=== PATIENT | female | born 1945 | race Caucasian/White ===

== ENCOUNTER → 2016-08-03 | Outpatient (CLI) | payer MEDICARE, BC ==
--- NOTE | 2016-08-03 17:13 | BD ---
EXAMINATION TYPE: MG DEXA axial skeleton. DATE OF EXAM: 08/03/2016 COMPARISON: 2014 CLINICAL HISTORY: osteopenia Height: 5'6 Weight: 133 FRAX RISK QUESTIONS: Alcohol (3 or more units per day): no Family History (Parent hip fracture): no Glucocorticoids (More than 3mos): no (Ex: prednisone, prednisolone, methylprednisolone, dexamethasone, and hydrocortisone). History of Fracture in Adulthood: yes Secondary Osteoporosis: 1. Type 1 Diabetes: no 2. Hyperthyroidism: no 3. Menopause before 45: no 4. Malnutrition: no 5. Chronic liver disease: no Rheumatoid Arthritis: no Current Tobacco Use: no RISK FACTORS HISTORY OF: Other Fractures since Age 52: When: age 55 Postmenopausal woman: MEDICATIONS: Additional Medications: Additional History: osteopenia EXAM MEASUREMENTS: Bone mineral densitometry was performed using the [employer] System. Bone mineral density as measured about the Lumbar spine is: ----- L1-L4(G/cm2): 1.012 T Score Values are as follows: ----- L2: -0.7 ----- L3: -1.4 ----- L4: -1.8 ----- L1-L4: -1.4 Bone mineral density has: Decreased -4.4% since study of: 07/10/2014 Bone mineral density about the R hip (g/cm2): 0.629 Bone mineral density about the L hip (g/cm2): 0.616 T Score values are as follows: -----R Neck: -2.9 -----L Neck: -3.0 -----R Total: -3.0 -----L Total: -3.1 Bone mineral density has: Increased 0.3% since study of: 07/10/2014 IMPRESSION: Osteoporosis (T Score less than -2.5) as noted by T Score values at the: [facility] There is increased fracture risk and therapy is usually indicated based on age. Re-Screen 1-2 years. Bone density within the lumbar spine is diminished 4.4% from 2014. Bone density within the bilateral hips is improved 0.3% 2014. NOTE: T-SCORE=SD OF THE YOUNG ADULT MEAN.
== END | disposition home or self-care (01) ==
LOC: RADBDWWP 11:17
PROVIDERS: ATTEND Internal Medicine
DX: M81.0 Age-related osteoporosis without current pathological fracture (principal)
CPT/HCPCS: 77080

== ENCOUNTER → 2018-03-21 | Outpatient (CLI) | payer MEDICARE, BC ==
--- NOTE | 2018-03-21 09:55 | US ---
EXAMINATION TYPE: US abdomen complete DATE OF EXAM: 03/21/2018 COMPARISON: NONE CLINICAL HISTORY: R10.84 ABD PAIN, DIFFUSE. EXAM MEASUREMENTS: Liver Length: 13.8 cm Gallbladder Wall: 0.2 cm CBD: 0.4 cm Spleen: 7.9 cm Right Kidney: 9.4 x 4.4 x 4.9 cm Left Kidney: 9.4 x 4.0 x 4.4 cm Pancreas: Tail obscured by overlying bowel gas, visualized portions wnl Liver: wnl Gallbladder: wnl Evidence for sonographic Ruvalcaba's sign: No CBD: wnl Spleen: wnl Right Kidney: No hydronephrosis or masses seen Left Kidney: No hydronephrosis or masses seen Upper IVC: wnl Abd Aorta: Some atherosclerotic changes visualized, no sonographic evidence of AAA The visualized liver is homogenous. The intrahepatic portion of the IVC and visualized abdominal aor ta are within normal limits. There is no evidence of cholelithiasis. Common bile duct is unremarkab le. The visualized portions of the pancreas are homogenous. The spleen is unremarkable. Kidneys ar e symmetric and free of hydronephrosis. No renal lesions are seen on images saved. IMPRESSION: No suspicious acute finding is seen to account for patient's symptoms of diffuse abdomina l pain.
== END ==
LOC: RADUSWWP 08:55
PROVIDERS: ATTEND Internal Medicine
DX: R10.84 Generalized abdominal pain (principal)
CPT/HCPCS: 76700

== ENCOUNTER → 2019-10-05 | Outpatient (CLI) | payer MEDICARE, BC ==
[2019-10-05 16:11] LABS: African American GFR (CKD) >90 (>60 ml/min/1.73 sqM); Blood Urea Nitrogen 16 mg/dL (7-17); Non-African American GFR(CKD) 89 (>60 ml/min/1.73 sqM)
--- NOTE | 2019-10-08 09:11 | CT ---
EXAMINATION TYPE: CT foot LT wo/w con DATE OF EXAM: 10/05/2019 COMPARISON: None. HISTORY: left foot pain and swelling. no injury. Fracture versus RSD per order. CT DLP: 554.9 mGycm Automated exposure control for dose reduction was used. CONTRAST: Performed without and with IV Contrast, patient injected with 100 mL of Isovue 300. FINDINGS: Negative osseous structures are demineralized. Hindfoot articulations are maintained. Normal sinus ta rsi fat is seen. Distal Achilles tendon is intact. Ankle mortise symmetry is preserved. Midfoot structures show preservation of the Lisfranc joints. No acute fracture or dislocation is pres ent. Forefoot structures show some flexion of the distal toes greatest in the fourth and fifth toes with s light varus positioning of the distal third through fifth toes. No acute fracture or dislocation is s een. Post contrast images show no suspicious enhancement. There is [id number] diffuse subcutaneous e neris greatest along the plantar surface. No bony destruction is noted. Muscle bulk fairly well mainta ined. IMPRESSION: As above. Diffuse demineralization. No obvious fracture. If clinical concern for RSD aparna ins present, further investigation with bone scan may be warranted.
== END | disposition home or self-care (01) ==
LOC: RADCTMAIN 15:22
PROVIDERS: ATTEND Podiatrist
DX: M25.872 Other specified joint disorders, left ankle and foot (principal)
CPT/HCPCS: 82565; 84520; 36415; 73702; Q9967

== ENCOUNTER 2021-10-04 10:01 | Emergency (ER) | payer MEDICARE, BC ==
[2021-10-04 10:09] VITALS: RESP 18; TEMP 97.8
[2021-10-04 11:31] LABS: HGB 14.9 gm/dL (11.4-16.0); MCHC 32.4 g/dL (31.0-37.0); MCV 92.6 fL (80.0-100.0); Mean Platelet Volume 7.5; Platelet Count 263 k/uL (150-450); RBC 4.96 m/uL (3.80-5.40); RDW 12.1 % (11.5-15.5); WBC 6.2 k/uL (3.8-10.6)
--- NOTE | 2021-10-04 11:31 | ED ---
Nausea/Vomiting/Diarrhea HPI - General Chief complaint: Nausea/Vomiting/Diarrhea Stated complaint: NVD Time Seen by Provider: 10/04/21 11:27 Source: patient, family, RN notes reviewed Mode of arrival: ambulatory - History of Present Illness Initial comments: Patient is a 75-year-old female presents the emergency room with complaints of abdominal cramping and persistent diarrhea for the last 4-1/2 days. She states that she has lower abdominal cramping preceded by diarrhea which relieves her cramping ongoing regardless of food or fluid intake. She states she went to urgent care yesterday who tested her for COVID and she was COVID negative. She is COVID and flu vaccinated. They did not prescribe any medications or do any other treatment. She states that the first day she was sick she did have a temperature of 101.5 but not has not had a fever since. She states that over the course of the last 4 days with her diarrhea bouts that she has lost approximately 7 pounds. She denies any nausea or vomiting. She reports that the cramping pain in her abdomen is mild. She did develop some dizziness after her first day of diarrhea. She denies any chest pain, headaches, body aches, shortness of breath, dysuria, hematuria, weakness or focal neurological deficits. She reports that her had similar GI symptoms approximately one week ago. Overall she is healthy and not taking any medications on a regular basis and denies any significant past medical history. - Related Data Allergies Allergy/AdvReac Type Severity Reaction Status Date / Time No Known Allergies Allergy Verified 10/04/21 10:09 Review of Systems ROS Statement: Those systems with pertinent positive or pertinent negative responses have been documented in the HPI. ROS Other: All systems not noted in ROS Statement are negative. Past Medical History Past Medical History: No Reported History History of Any Multi-Drug Resistant Organisms: None Reported Additional Past Surgical History / Comment(s): D&C Past Psychological History: No Psychological Hx Reported Smoking Status: Never smoker Past Alcohol Use History: Daily Past Drug Use History: None Reported General Exam Limitations: no limitations General appearance: alert, in no apparent distress Head exam: Present: atraumatic, normocephalic, normal inspection Eye exam: Present: normal appearance, PERRL, EOMI. Absent: scleral icterus, conjunctival injection, nystagmus, periorbital swelling ENT exam: Present: normal exam, mucous membranes moist Neck exam: Present: normal inspection. Absent: tenderness, meningismus, lymphadenopathy Respiratory exam: Present: normal lung sounds bilaterally. Absent: respiratory distress, wheezes, rales, rhonchi, stridor Cardiovascular Exam: Present: regular rate, normal rhythm, normal heart sounds. Absent: systolic murmur, diastolic murmur, rubs, gallop, clicks GI/Abdominal exam: Present: soft, distended (mild lower quadrant bloating), hypoactive bowel sounds (lower quadrant). Absent: tenderness, guarding, rebound, rigid Rectal exam: Absent: deferred Extremities exam: Present: normal inspection, full ROM, normal capillary refill. Absent: tenderness, pedal edema, joint swelling, calf tenderness Back exam: Present: normal inspection Neurological exam: Present: alert, oriented X3, CN II-XII intact Psychiatric exam: Present: normal affect, normal mood Skin exam: Present: warm, dry, intact, normal color. Absent: rash Course Vital Signs 10/04/21 10/04/21 10:01 13:00 Temperature 97.8 F Pulse Rate 85 88 Respiratory 18 18 Rate Blood Pressure 119/78 120/76 O2 Sat by Pulse 94 L 95 Oximetry Medical Decision Making - Medical Decision Making 75-year-old female presenting to the emergency room with one half days of severe diarrhea preceded by abdominal cramping and a fever the initial day. She has developed dizziness after her diarrhea. Due to about onset likely viral in nature. Previous COVID test negative. Will repeat COVID test, check CMP, amylase, lipase along with urinalysis and stool study. Due to abdominal bloating and weight loss will check CT of the abdomen. Will give IV hydration and monitor symptoms. She denies any analgesic or antirheumatic needs. CBC statement is stable. Electrolytes consistent with mild dehydration sodium level low, BUN slightly elevated, creatinine slightly elevated. Stool occult blood positive. She is responded well to IV fluids. Computed tomography scan shows pancolitis. Case discussed with city call provider regarding possible admission however recommend transfer to ancillary facility with GI services available. Will give additional IV fluids start on Zosyn and give a dose of Lomotil. Case discussed with Dr. Riojas at [facility] who is agreeable for ER to ER transfer. Case discussed with Dr. Srivastava. - Lab Data Result diagrams: 10/04/21 11:09 10/04/21 11:09 Lab Results 10/04/21 10/04/21 10/04/21 Range/Units 11:09 11:09 11:09 WBC 6.2 (3.8-10.6) k/uL RBC 4.96 (3.80-5.40) m/uL Hgb 14.9 (11.4-16.0) gm/dL Hct 46.0 (34.0-46.0) % MCV 92.6 (80.0-100.0) fL MCH 30.0 (25.0-35.0) pg MCHC 32.4 (31.0-37.0) g/dL RDW 12.1 (11.5-15.5) % Plt Count 263 (150-450) k/uL MPV 7.5 Neutrophils % Not Reportable Neutrophils % (Manual) 20 % Band Neuts % (Manual) 58 % Lymphocytes % Not Reportable Lymphocytes % (Manual) 12 % Monocytes % Not Reportable Monocytes % (Manual) 12 % Eosinophils % Not Reportable Basophils % Not Reportable Neutrophils # Not Reportable Neutrophils # (Manual) 4.80 (1.3-7.7) k/uL Lymphocytes # Not Reportable Lymphocytes # (Manual) 0.74 L (1.0-4.8) k/uL Monocytes # Not Reportable Monocytes # (Manual) 0.74 (0-1.0) k/uL Eosinophils # Not Reportable Basophils # Not Reportable Nucleated RBCs 0 (0-0) /100 WBC Manual Slide Review Performed Toxic Granulation Present Toxic Vacuolation Present Anisocytosis (manual) Present Sodium 127 L (137-145) mmol/L Potassium 3.6 (3.5-5.1) mmol/L Chloride 85 L (98-107) mmol/L Carbon Dioxide 25 (22-30) mmol/L Anion Gap 17 mmol/L BUN 19 H (7-17) mg/dL Creatinine 1.09 H (0.52-1.04) mg/dL Est GFR (CKD-EPI)AfAm 59 (>60 ml/min/1.73 sqM) Est GFR (CKD-EPI)NonAf 51 (>60 ml/min/1.73 sqM) Glucose 101 H (74-99) mg/dL Plasma Lactic Acid Skinny 1.1 (0.7-2.0) mmol/L Calcium 9.5 (8.4-10.2) mg/dL Total Bilirubin 0.7 (0.2-1.3) mg/dL AST 33 (14-36) U/L ALT 16 (4-34) U/L Alkaline Phosphatase 65 (38-126) U/L Total Protein 8.1 (6.3-8.2) g/dL Albumin 4.7 (3.5-5.0) g/dL Amylase (30-110) U/L Lipase (23-300) U/L Urine Color Urine Appearance (Clear) Urine pH (5.0-8.0) Ur Specific Mclean (1.001-1.035) Urine Protein (Negative) Urine Glucose (UA) (Negative) Urine Ketones (Negative) Urine Blood (Negative) Urine Nitrite (Negative) Urine Bilirubin (Negative) Urine Urobilinogen (<2.0) mg/dL Ur Leukocyte Esterase (Negative) Urine RBC (0-5) /hpf Urine WBC (0-5) /hpf Urine WBC Clumps (None) /hpf Ur Squamous Epith Cells (0-4) /hpf Urine Bacteria (None) /hpf Hyaline Casts (0-2) /lpf Granular Casts (0) /lpf Urine Mucus (None) /hpf Stool Occult Blood (Negative) C. difficile (EIA) Intrp (Negative) Coronavirus (PCR) (Not Detectd) Influenza Type A RNA (Not Detectd) Influenza Type B (PCR) (Not Detectd) 10/04/21 10/04/21 10/04/21 Range/Units 11:09 11:10 11:49 WBC (3.8-10.6) k/uL RBC (3.80-5.40) m/uL Hgb (11.4-16.0) gm/dL Hct (34.0-46.0) % MCV (80.0-100.0) fL MCH (25.0-35.0) pg MCHC (31.0-37.0) g/dL RDW (11.5-15.5) % Plt Count (150-450) k/uL MPV Neutrophils % Neutrophils % (Manual) % Band Neuts % (Manual) % Lymphocytes % Lymphocytes % (Manual) % Monocytes % Monocytes % (Manual) % Eosinophils % Basophils % Neutrophils # Neutrophils # (Manual) (1.3-7.7) k/uL Lymphocytes # Lymphocytes # (Manual) (1.0-4.8) k/uL Monocytes # Monocytes # (Manual) (0-1.0) k/uL Eosinophils # Basophils # Nucleated RBCs (0-0) /100 WBC Manual Slide Review Toxic Granulation Toxic Vacuolation Anisocytosis (manual) Sodium (137-145) mmol/L Potassium (3.5-5.1) mmol/L Chloride (98-107) mmol/L Carbon Dioxide (22-30) mmol/L Anion Gap mmol/L BUN (7-17) mg/dL Creatinine (0.52-1.04) mg/dL Est GFR (CKD-EPI)AfAm (>60 ml/min/1.73 sqM) Est GFR (CKD-EPI)NonAf (>60 ml/min/1.73 sqM) Glucose (74-99) mg/dL Plasma Lactic Acid Skinny (0.7-2.0) mmol/L Calcium (8.4-10.2) mg/dL Total Bilirubin (0.2-1.3) mg/dL AST (14-36) U/L ALT (4-34) U/L Alkaline Phosphatase (38-126) U/L Total Protein (6.3-8.2) g/dL Albumin (3.5-5.0) g/dL Amylase 42 (30-110) U/L Lipase 18 L (23-300) U/L Urine Color Yellow Urine Appearance Cloudy H (Clear) Urine pH 5.5 (5.0-8.0) Ur Specific Mclean 1.018 (1.001-1.035) Urine Protein 1+ H (Negative) Urine Glucose (UA) Negative (Negative) Urine Ketones 1+ H (Negative) Urine Blood Moderate H (Negative) Urine Nitrite Negative (Negative) Urine Bilirubin Negative (Negative) Urine Urobilinogen <2.0 (<2.0) mg/dL Ur Leukocyte Esterase Large H (Negative) Urine RBC 2 (0-5) /hpf Urine WBC 89 H (0-5) /hpf Urine WBC Clumps Rare H (None) /hpf Ur Squamous Epith Cells <1 (0-4) /hpf Urine Bacteria Few H (None) /hpf Hyaline Casts 45 H (0-2) /lpf Granular Casts 26 (0) /lpf Urine Mucus Few H (None) /hpf Stool Occult Blood (Negative) C. difficile (EIA) Intrp Negative (Negative) Coronavirus (PCR) (Not Detectd) Influenza Type A RNA (Not Detectd) Influenza Type B (PCR) (Not Detectd) 10/04/21 10/04/21 10/04/21 Range/Units 11:49 11:49 12:02 WBC (3.8-10.6) k/uL RBC (3.80-5.40) m/uL Hgb (11.4-16.0) gm/dL Hct (34.0-46.0) % MCV (80.0-100.0) fL MCH (25.0-35.0) pg MCHC (31.0-37.0) g/dL RDW (11.5-15.5) % Plt Count (150-450) k/uL MPV Neutrophils % Neutrophils % (Manual) % Band Neuts % (Manual) % Lymphocytes % Lymphocytes % (Manual) % Monocytes % Monocytes % (Manual) % Eosinophils % Basophils % Neutrophils # Neutrophils # (Manual) (1.3-7.7) k/uL Lymphocytes # Lymphocytes # (Manual) (1.0-4.8) k/uL Monocytes # Monocytes # (Manual) (0-1.0) k/uL Eosinophils # Basophils # Nucleated RBCs (0-0) /100 WBC Manual Slide Review Toxic Granulation Toxic Vacuolation Anisocytosis (manual) Sodium (137-145) mmol/L Potassium (3.5-5.1) mmol/L Chloride (98-107) mmol/L Carbon Dioxide (22-30) mmol/L Anion Gap mmol/L BUN (7-17) mg/dL Creatinine (0.52-1.04) mg/dL Est GFR (CKD-EPI)AfAm (>60 ml/min/1.73 sqM) Est GFR (CKD-EPI)NonAf (>60 ml/min/1.73 sqM) Glucose (74-99) mg/dL Plasma Lactic Acid Skinny (0.7-2.0) mmol/L Calcium (8.4-10.2) mg/dL Total Bilirubin (0.2-1.3) mg/dL AST (14-36) U/L ALT (4-34) U/L Alkaline Phosphatase (38-126) U/L Total Protein (6.3-8.2) g/dL Albumin (3.5-5.0) g/dL Amylase (30-110) U/L Lipase (23-300) U/L Urine Color Urine Appearance (Clear) Urine pH (5.0-8.0) Ur Specific Mclean (1.001-1.035) Urine Protein (Negative) Urine Glucose (UA) (Negative) Urine Ketones (Negative) Urine Blood (Negative) Urine Nitrite (Negative) Urine Bilirubin (Negative) Urine Urobilinogen (<2.0) mg/dL Ur Leukocyte Esterase (Negative) Urine RBC (0-5) /hpf Urine WBC (0-5) /hpf Urine WBC Clumps (None) /hpf Ur Squamous Epith Cells (0-4) /hpf Urine Bacteria (None) /hpf Hyaline Casts (0-2) /lpf Granular Casts (0) /lpf Urine Mucus (None) /hpf Stool Occult Blood Positive H (Negative) C. difficile (EIA) Intrp (Negative) Coronavirus (PCR) Not Detected (Not Detectd) Influenza Type A RNA Not Detected (Not Detectd) Influenza Type B (PCR) Not Detected (Not Detectd) - Radiology Data Radiology results: report reviewed, image reviewed CT of the abdomen and pelvis showed moderate to severe pancolitis down to the rectum. Continuous long segment colitis involving small bowel in the pelvis. Extensive infectious enterocolitis versus Crohn's disease/ulcerative colitis. Reactive mid lower abdominal and pelvic free fluid. Disposition Clinical Impression: Acute colitis Disposition: OTHER INSTITUTION NOT DEFINED Condition: Stable Is patient prescribed a controlled substance at d/c from ED?: No Referrals: Jennifer Platt MD [Primary Care Provider] - 1-2 days Time of Disposition: 14:24 - Out of Hospital Transfer - Req. Specs Out of Hospital Transfer - Requested Specifics: Other Emergency Center ([facility]
[2021-10-04 11:33] LABS: Albumin 4.7 g/dL (3.5-5.0); Calcium 9.5 mg/dL (8.4-10.2); Potassium 3.6 mmol/L (3.5-5.1); Total Bilirubin 0.7 mg/dL (0.2-1.3); Total Protein 8.1 g/dL (6.3-8.2)
[2021-10-04] MEDS ORDERED: SODIUM CHLORIDE 0.9% 1,000 ML IV STA ×2 (11:41→14:12)
[2021-10-04 11:43] LABS: Appearance,Urine Cloudy (Clear); Bacteria,Urine Few /hpf; Bilirubin,Urine Negative (Negative); Blood,Urine Moderate (Negative); Color,Urine Yellow; Glucose,Urine (UA) Negative (Negative); Granular Casts,Urine 26 /lpf (0); Hyaline Casts,Urine 45 /lpf (0-2); Ketones,Urine 1+ (Negative); Leukocyte Esterase,Urine Large (Negative); Mucus,Urine Few /hpf; Nitrite,Urine Negative (Negative); PH, Urine 5.5 (5.0-8.0); Protein,Urine 1+ (Negative); RBC,Urine 2 /hpf (0-5); Specific Gravity,Urine 1.018 (1.001-1.035); Squamous Epithelial Cell,Urine <1 /hpf (0-4); Urobilinogen,Urine <2.0 mg/dL (<2.0); WBC,Urine 89 /hpf (0-5)
[2021-10-04 11:56] LABS: Amylase 42 U/L (30-110); Lipase 18 U/L (23-300)
[2021-10-04 11:59] LABS: Band Neutrophils % 58 %; Lymphocytes # (M) 0.74 k/uL (1.0-4.8); Monocytes # (M) 0.74 k/uL (0-1.0); Neutrophils % (M) 20 %; Nucleated Red Blood Cells 0 /100 WBC (0-0); Total Cells Counted 200; Toxic Vacuolation Present
[2021-10-04 12:00] LABS: Anisocytosis (M) Present; Toxic Granulation Present
--- NOTE | 2021-10-04 12:29 | CT ---
EXAMINATION TYPE: CT abdomen pelvis w con DATE OF EXAM: 10/04/2021 COMPARISON: NONE HISTORY: 75-year-old female with pain, Diarrhea x4 days. TECHNIQUE: Contiguous axial scanning of the abdomen and pelvis following administration of 80 ml Isov ue 300 IV contrast. Delayed images through the kidneys and coronal/sagittal reconstructions performe d. CT DLP: 598.1 mGycm Automated exposure control for dose reduction was used. FINDINGS: Heart upper limits of normal in size. Trace pericardial fluid. Strandy atelectasis in the l ower lungs without pleural effusion. No focal liver lesion. Bile duct mildly dilated at 7 mm, acceptable given patient's age. There is no abnormal gallbladder distention. Portal venous system is patent. Adrenal glands, spleen, and atrophic pancreas show no gross acute pneumonia. Symmetric uptake and excretion of contrast from both kidneys. There is a 6 mm cortical cyst lateral right kidney. There is also a 1.5 cm parapelvic cyst left kidne y. No dilated small bowel, free fluid, or free air. Prominent retroperitoneal nodes measuring up to 1.2 cm, coronal image 35 in the upper abdomen are nonspecific, probably reactive. Scattered nonenlarged m esenteric lymph nodes also demonstrated. Prominent fluid filled small bowel loops lower abdomen and pelvis. There is moderate to severe mucosa l hyperemia, edematous wall thickening involving the entire colon distally to the rectum and contiguo us inflammation of long segment ileal loops within the pelvis. Mild associated lower abdominal pelvic free fluid. No free air or abscess formation. Bladder partially distended. Anteverted uterus. Left ovary is seen. Right ovary not clearly from luis cent bowel. No pelvic lymphadenopathy. Bones: Osteopenia. Moderately advanced discogenic degenerative change L1-L4 levels. Hypertrophic face t arthropathy with trace grade 1 retrolisthesis L2-L3 and L3-L4. Baastrup's disease. IMPRESSION: 1. MODERATE TO SEVERE PANCOLITIS DOWN TO THE RECTUM. CONTIGUOUS LONG SEGMENT ILEITIS INVOLVING SMALL BOWEL IN THE PELVIS. CORRELATE FOR EXTENSIVE INFECTIOUS ENTEROCOLITIS VERSUS CROHN'S DISEASE/UC. 2. REACTIVE MILD LOWER ABDOMINAL AND PELVIC FREE FLUID.
[2021-10-04 13:46] VITALS: BP 120/76; PULSE 88
[2021-10-04] MEDS ORDERED: DIPHENOX-ATROP 2.5-0.025 MG 1 EACH TAB PO STA (14:12)
[2021-10-04] MEDS ORDERED: PIPERACILLIN-TAZOBACTAM 3.375 GM in SODIUM CHLORIDE 0.9% 100 ML IVPB STA (14:12)
== END 2021-10-04 14:42 | disposition other institution (70) ==
LOC: EC 10:01
DX: K52.9 Noninfective gastroenteritis and colitis, unspecified (principal); Z20.822 Contact with and (suspected) exposure to COVID-19
CPT/HCPCS: 36415; 80053; 82150; 83605; 83690; 85025; 82272; 81001; 87040; 87324; 87086; 87045; 87046; 87502; 87635; 74177; 99285; 96374; 96361; J2543; Q9967

== ENCOUNTER 2023-08-21 11:06 | Emergency (ER) | payer MEDICARE, BC ==
[2023-08-21 11:18] VITALS: RESP 18
--- NOTE | 2023-08-21 11:19 | ED ---
General Adult HPI - General Chief complaint: Extremity Injury, Lower Stated complaint: 4 broken ribs L side/broken L knee Time Seen by Provider: 08/21/23 11:19 Source: patient, RN notes reviewed Mode of arrival: ambulatory Limitations: no limitations - History of Present Illness Initial comments: This is a 77-year-old female presents emergency department chief complaint of a fall. Patient states that she fell 08/19/23 while she was outside. She denies hitting her head or loss of consciousness at the time of the event. She denies presyncopal feelings before the time of the fall. Patient was evaluated at [facility] urgent care this morning where x-rays were completed of the left knee and anterior chest. It was noted that the patient has left rib fractures of 3, 4, 5, and 6. Additionally on x-ray of the knee it was noted that she has a medial tibial plateau nondisplaced chip fracture. Patient states that she has been able to ambulate well, and the anterior left chest pain is exacerbated with movement. States she has not taken anything for the pain. Denies dyspnea or radiation of pain. - Related Data Allergies Allergy/AdvReac Type Severity Reaction Status Date / Time No Known Allergies Allergy Verified 08/21/23 11:15 Review of Systems ROS Statement: Those systems with pertinent positive or pertinent negative responses have been documented in the HPI. ROS Other: All systems not noted in ROS Statement are negative. Past Medical History Past Medical History: No Reported History History of Any Multi-Drug Resistant Organisms: None Reported Past Surgical History: Bladder Surgery Additional Past Surgical History / Comment(s): D&C Past Psychological History: Anxiety Smoking Status: Never smoker Past Alcohol Use History: Daily Past Drug Use History: None Reported General Exam Limitations: no limitations General appearance: alert, in no apparent distress Head exam: Present: atraumatic, normocephalic, normal inspection Eye exam: Present: normal appearance, PERRL, EOMI. Absent: scleral icterus, conjunctival injection, periorbital swelling ENT exam: Present: normal exam, mucous membranes moist Neck exam: Present: normal inspection. Absent: tenderness, meningismus, lymphadenopathy Respiratory exam: Present: normal lung sounds bilaterally, chest wall tenderness (left anterior and mid-axillary tenderness to palpation). Absent: respiratory distress, wheezes, rales, rhonchi, stridor Cardiovascular Exam: Present: regular rate, normal rhythm, normal heart sounds. Absent: systolic murmur, diastolic murmur, rubs, gallop, clicks GI/Abdominal exam: Present: soft, normal bowel sounds. Absent: distended, tenderness, guarding, rebound, rigid Left Hip exam: Present: normal inspection, full ROM. Absent: tenderness Knee exam: Present: full ROM (mild pain with flexion and extension), tenderness (anterior), abrasion (2 abrasions, no noted active bleeding ). Absent: normal inspection, ecchymosis, deformity Neurovascular tendon exam: Present: no vascular compromise Gait: observed and normal Back exam: Present: normal inspection Neurological exam: Present: alert, oriented X3, CN II-XII intact Course Vital Signs 08/21/23 08/21/23 11:15 14:08 Temperature 98 F 98.6 F Pulse Rate 68 77 Respiratory 18 18 Rate Blood Pressure 162/87 153/81 O2 Sat by Pulse 99 97 Oximetry Medical Decision Making - Medical Decision Making Was pt. sent in by a medical professional or institution (, PA, [employer], urgent care, hospital, or custodial...) When possible be specific @ -Patient was referred by [facility] urgent [facility] to report to the emergency department for further evaluation with imaging findings consistent of left rib fractures of 3, 4, 5 and 6 in addition to a left knee tibial plateau fracture. Did you speak to anyone other than the patient for history (EMS, parent, family, police, friend...)? What history was obtained from this source @ -No Did you review nursing and triage notes (agree or disagree)? Why? @ -I reviewed and agree with nursing and triage notes Were old charts reviewed (outside hosp., previous admission, EMS record, old EKG, old radiological studies, urgent care reports/EKG's, custodial records)? Report findings @ -No old charts were reviewed Differential Diagnosis (chest pain, altered mental status, abdominal pain women, abdominal pain men, vaginal bleeding, weakness, fever, dyspnea, syncope, headache, dizziness, GI bleed, back pain, seizure, CVA, palpatations, mental health, musculoskeletal)? @ -Differential Musculoskeletal Muscular strain, contusion, ligament sprain, fracture, arthritis, septic arthritis, bursitis, cellulitis, muscle spasm, nerve compression, DVT, arterial occlusion, herpes zoster, electrolyte abnormality, tumor.... This is not meant to be in all inclusive list EKG interpreted by me (3pts min.). @ -None X-rays interpreted by me (1pt min.). @ -xray of the left knee no acute fracture or dislocation of the knee. CT interpreted by me (1pt min.). @ -CT of the chest No rib fracture identified, no lung consolidation or pneumothorax. U/S interpreted by me (1pt. min.). @ -None done What testing was considered but not performed or refused? (CT, X-rays, U/S, labs)? Why? @ -None What meds were considered but not given or refused? Why? @ -[Was offered pain medication but she has declined at this time. Did you discuss the management of the patient with other professionals (professionals i.e. , PA, [employer], lab, RT, psych nurse, social security specialist, dog catcher, teacher, grant officer, telehealth case manager)? Give summary @ -No Was smoking cessation discussed for >3mins.? @ -No Was critical care preformed (if so, how long)? @ -No Were there social determinants of health that impacted care today? How? (Homelessness, low income, unemployed, alcoholism, drug addiction, transportation, low edu. Level, literacy, decrease access to med. care, care home, rehab)? @ -No Was there de-escalation of care discussed even if they declined (Discuss DNR or withdrawal of care, Hospice)? DNR status @ -No What co-morbidities impacted this encounter? (DM, HTN, Smoking, COPD, CAD, Cancer, CVA, ARF, Chemo, Hep., AIDS, mental health diagnosis, sleep apnea, morbid obesity)? @ -None Was patient admitted / discharged? Hospital course, mention meds given and route, prescriptions, significant lab abnormalities, going to OR and other pertinent info. @ -77-year-old female with a fall. On examination patient has noted to have left anterior chest wall pain on palpation. Additionally there is an abrasion over the left knee. Patient has mild pain with range of motion of the left knee. Cardiopulmonary examination benign. Patient will be sent for reevaluation including x-ray of the knee and CT of the chest. She was offered pain medication but was declined at this time. ET of the chest and x-ray of the knee nonconcerning for any acute injury. Patient was advised to continue Tylenol Motrin at home, rest, elevate the affected knee and use ice as needed. Recommend that she follows up with her primary care provider next week for further evaluation. All questions answered at bedside and strict return parameters discussed with the patient she is verbalized understanding. Case discussed with Dr. Lucas Undiagnosed new problem with uncertain prognosis? @ -No Drug Therapy requiring intensive monitoring for toxicity (Heparin, Nitro, Insulin, Cardizem)? @ -No Were any procedures done? @ -No Diagnosis/symptom? @ -Fall, left rib pain, left knee pain Acute, or Chronic, or Acute on Chronic? @ -Acute Uncomplicated (without systemic symptoms) or Complicated (systemic symptoms)? @ -uncomplicated Side effects of treatment? @ -No Exacerbation, Progression, or Severe Exacerbation? @ -No Poses a threat to life or bodily function? How? (Chest pain, [place], [place], pneumonia, PE, COPD, DKA, ARF, appy, cholecystitis, CVA, Diverticulitis, Homicidal, Suicidal, threat to staff... and all critical care pts) @ -No Disposition Clinical Impression: Fall, Rib pain, Knee pain Disposition: HOME SELF-CARE Condition: Good Instructions (If sedation given, give patient instructions): Knee Pain (ED) Additional Instructions: Return to the emergency department if symptoms worsen or not improved. Continue to take Tylenol Motrin at home as needed for symptomatically. Continue to rest, ice, elevate the left knee. Is patient prescribed a controlled substance at d/c from ED?: No Referrals: Pily Marley MD [Primary Care Provider] - 1-2 days Time of Disposition: 13:44
--- NOTE | 2023-08-21 12:29 | CT ---
EXAMINATION TYPE: CT chest wo con CT DLP: 219.5 mGycm, Automated exposure control for dose reduction was used. DATE OF EXAM: 08/21/2023 11:52 AM COMPARISON: None. . CLINICAL INDICATION:Female, 77 years old with history of fall, pain over left lateral ribs; PHH, fall left side rib pain TECHNIQUE: Multiple axial images were obtained through the chest. Sagittal and coronal reformats were created for review. Contrast used: mL of (None if empty) Oral contrast used: (None if empty) FINDINGS: LUNGS/ PLEURA: No acute infiltrate or consolidation. Mild scarring or subsegmental atelectasis in the left lung base adjacent to a small posterior Bochdalek type hernia. Linear atelectasis also in the r ight lung base. No pleural effusion or pneumothorax. AIRWAY: Central airways are patent. LOWER NECK: No significant findings. Unremarkable thyroid. MEDIASTINUM: No enlarged nodes by CT size criteria. HEART: Heart size upper normal. . No appreciable pericardial effusion. VASCULATURE: Moderate atherosclerotic calcifications of the aorta and branches. Ascending aorta is 3 .2 CM, descending is 2.2 CM. Pulmonary trunk measures 2.3 CM. Pulmonary trunk is normal in size. Vessels otherwise not further ass essed without contrast. SOFT TISSUES/LYMPH NODES: Unremarkable soft tissues. No axillary adenopathy. UPPER ABDOMEN: No significant findings. MUSCULOSKELETAL: No acute osseous abnormalities . Mild/moderate degenerative changes of the visualize d spine, with S-shaped lower thoracic and lumbar scoliosis. IMPRESSION: No rib fracture identified. No lung contusion or pneumothorax.
--- NOTE | 2023-08-21 13:04 | XR ---
EXAMINATION TYPE: XR knee complete LT DATE OF EXAM: 08/21/2023 11:52 AM CLINICAL INDICATION:Female, 77 years old with history of fall, pain; PHH COMPARISON: None. TECHNIQUE: XR knee complete LT; examined in Frontal, lateral and oblique projections. FINDINGS: Mild generalized osteopenia. No evidence of fracture lucency or dislocation. There is mild tricompart mental osteoarthropathy. No chondrocalcinosis is seen. No sizable joint effusion suggested. No radiop aque foreign body. IMPRESSION: No acute fracture or dislocation of the left knee.
[2023-08-21 14:11] VITALS: BP 153/81; PULSE 77; TEMP 98.6
== END 2023-08-21 14:08 | disposition home or self-care (01) ==
LOC: EC 11:06
DX: S80.212A Abrasion, left knee, initial encounter (principal); R07.81 Pleurodynia; W19.XXXA Unspecified fall, initial encounter
CPT/HCPCS: 71250; 99284

== ENCOUNTER 2023-11-18 07:32 | Day surgery (SDC) | payer MEDICARE, BC ==
[~2023-11-18 07:32] MED LIST: ALPRAZolam 0.25 MG TAB PO PRN; ALPRAZolam 0.5 MG TAB PO PRN; ASPIRIN 325 MG TAB PO STA; ATORVASTATIN 80 MG TAB PO STA; NITROGLYCERIN SL TABS 0.4 MG TAB SUBLINGUAL PRN
[2023-11-18 07:50] VITALS: RESP 18; TEMP 97.7
[2023-11-18] MEDS: IV FLUID CONTINUATION 1,000 ML IV ONE (07:50)
[2023-11-18] MEDS: SODIUM CHLORIDE 0.9% 1,000 ML in EMPTY BAG 1 BAG IV SCH (07:50)
[2023-11-18 08:00] LABS: Basophils # (A) 0.1 k/uL (0-0.2); Basophils % (A) 1 %; Eosinophils # (A) 0.3 k/uL (0-0.7); Eosinophils % (A) 3 %; HCT 43.6 % (34.0-46.0); Lymphocytes % (A) 24 %; MCH 31.6 pg (25.0-35.0); MCHC 32.2 g/dL (31.0-37.0); MCV 98.3 fL (80.0-100.0); Mean Platelet Volume 6.6; Monocytes # (A) 0.5 k/uL (0-1.0); Monocytes % (A) 6 %; Neutrophils # (A) 5.3 k/uL (1.3-7.7); Neutrophils % (A) 64 %; Platelet Count 346 k/uL (150-450); RBC 4.44 m/uL (3.80-5.40); RDW 12.6 % (11.5-15.5); WBC 8.2 k/uL (3.8-10.6)
[2023-11-18 08:13] LABS: African American GFR (CKD) >90 (>60 ml/min/1.73 sqM); Anion Gap 6 mmol/L; Blood Urea Nitrogen 12 mg/dL (7-17); Calcium 10.2 mg/dL (8.4-10.2); Carbon Dioxide 31 mmol/L (22-30); Chloride 102 mmol/L (98-107); Glucose 96 mg/dL (74-99); Non-African American GFR(CKD) 88 (>60 ml/min/1.73 sqM); Sodium 139 mmol/L (137-145)
[2023-11-18] MEDS: HEPARIN SODIUM,PORCINE 10,000 UNIT in SODIUM CHLORIDE 0.9% 1,000 ML IRRIGATION PRN (09:06)
[2023-11-18] MEDS: HEPARIN SODIUM,PORCINE (1 ML) 2,500 UNIT in SODIUM CHLORIDE 0.9% 250 ML IRRIGATION PRN (09:06)
[2023-11-18] MEDS: fentaNYL (PF) 50 MCG/ML 2 ML AMP IVP ONE (09:07)
[2023-11-18] MEDS: LIDOCAINE 1% INJ 10MG/ML (20 ML MDV) SQ ONE (09:11)
[2023-11-18] MEDS: VERAPAMIL SYRINGE (5 MG/10 ML) INTRAARTER ONE (09:12)
[2023-11-18] MEDS: HEPARIN SODIUM 1,000 UN/ML (10ML VL) IVP ONE (09:16)
[2023-11-18] MEDS: IOPAMIDOL-370 100ML BTL INJ ONE (09:23)
[2023-11-18] MEDS ORDERED: RX INFO: IV CONTRAST WAS GIVEN 1 EACH MISC MISCELLANE PRN (09:37)
--- NOTE | 2023-11-18 09:41 | P.CARDCATH ---
Date of Procedure: 11/18/23 Description of Procedure: Cardiac Catheterization: The patient is a 77-year-old female with a history of hypertension and hyperlipidemia who has been complaining of dyspnea and had an abnormal MPI with a drop in her ejection fraction. Recommendations were made regarding cardiac catheterization, the risks and the complications were discussed with the patient who is in full understanding and agreement. Procedure Description: Patient was brought to bolt labeler in fasting semi-sedated state after receiving F entanyl and Benadryl achieiving moderate conscious sedated state. Using Xylocaine Anesthesia and modified Seldinger technique, a 6-Bhutanese sheath was introduced in the right radial artery . Subsequently, selective coronary angiography was performed using a 5-Bhutanese 3.5 bend Sai catheter. Multiple views of the coronary artery including hemiaxial views were obtained. The right Sai catheter was used to cross the aortic valve and LVEDP was calculated. Following that, catheter and sheath were removed. Hemostasis was obtained with deployment of vascular band . There was no immediate complication. Patient was returned to room in stable condition. Of note, the patient received a total of 3000 units of intravenous heparin as well as intra-arterial verapamil. Findings: Left main: This is a large size vessel, bifurcating into LAD and left circumflex, left main has no obstructive disease LAD: This is a large size vessel, reaching to the apex with a wraparound apex segment, giving rise to a large diagonal branch proximally, the LAD and its branches have no obstructive disease. Left circumflex: This is a nondominant vessel, giving rise to a large obtuse marginal branch that has no obstructive disease. RCA: This is a large dominant vessel, bifurcating into PDA and PLV, the RCA and its branches have no obstructive disease. Left Ventriculogram: Not performed Hemodynamics: There was no gradient across the aortic valve, LVEDP was 12-14 mmHg Conclusion: 1. Normal coronary arteries 2. Right dominance 3. Normal left ventricular end-diastolic pressure Recommendations: I have recommended to continue present therapy, at this time I see no evidence to suggest a cardiac etiology to her symptoms. The findings and the recommendations were discussed with the patient and the family and they were in full understanding and agreement. Duration of sedation is 12 minutes.
[2023-11-18] MEDS ORDERED: SODIUM CHLORIDE 0.9% 1,000 ML IV SCH (09:45)
[2023-11-18 10:40] VITALS: PULSE 60
[2023-11-18 12:25] VITALS: BP 153/83
[2023-11-19] MEDS ORDERED: ATORVASTATIN 40 MG TAB PO SCH (09:00)
[2023-11-19] MEDS ORDERED: METOPROLOL SUCCINATE (ER) 25 MG TAB.ER.24H PO SCH (09:00)
== END 2023-11-18 13:10 | disposition home or self-care (01) ==
LOC: CATHCVL 07:32
PROVIDERS: ATTEND Internal Medicine Interventional Cardiology
DX: R94.39 Abnormal result of other cardiovascular function study
CPT/HCPCS: 80048; 85025; 93458